=== PATIENT | male | born 2005 | race Caucasian/White ===

== ENCOUNTER 2024-02-24 | Outpatient (REF) | payer MEDICAID, SELFPAY ==
[2024-02-25 12:02] LABS: CT PCR NOT DETECTED (Not Detect.); NG PCR NOT DETECTED (Not Detect.)
== END 2024-02-24 00:01 | disposition home or self-care (01) ==
LOC: HO.HHCLNP
PROVIDERS: Visit Provider Student in an Organized Health Care Education/Training Program
DX: Z11.3 Encounter for screening for infections with a predominantly sexual mode of transmission (principal)
CPT/HCPCS: 87491; 87591